=== PATIENT | male | born 1980 | race Caucasian/White ===

== ENCOUNTER → 2017-10-27 15:00 | Outpatient (CLI) | payer BC, SELFPAY ==
--- NOTE | 2017-10-27 15:00 | LES_PTH ---
PATIENT: SCOTTIE GRIFFITH LOC: [facility] #:[id number] AGE/SX: 44/M ROOM: RE10/27/[address]: Dr. Ralph Moreno MD : 1980 BED: DIS: SPEC #: [id number] RECD: 10/27/17 16:25 STATUS: JENNIFER GWEN #: [id number] DANAE: 10/27/17 15:[address]: Ralph Moreno DEPT: SURGICAL PATHOLOGY RECD BY: Alejo Najera Tissues: A - Skin of forehead B - Skin of neck, NOS Procedures: Surgery Specimen Level IV HEADER OPERATION: Excision of skin lesion x2 PRE-OP DIAGNOSIS: Subcutaneous skin lesions <1 cm TISSUE SUBMITTED: A ? Skin lesion of forehead, B ? Skin lesion of posterior neck MICROSCOPIC DIAGNOSIS A. Skin lesion of forehead, biopsy: Fragments of mature adipose tissue, fibroconnective tissue and skeletal muscle tissue. See comment. B. Skin lesion of posterior neck, biopsy: Epidermal inclusion cyst. TAWNYA:maria dolores 11/02/17 COMMENT A. The lesion may represent lipoma. MICROSCOPIC DESCRIPTION Slides are reviewed. GROSS DESCRIPTION A - Received in fixative is one container labeled with the patient's name and designated skin lesion of forehead. The specimen consists of two pieces of franco soft tissue measuring in aggregate 1.2 x 0.5 x 0.2 cm. The entire specimen is submitted in one cassette. B - Received in fixative is one container labeled with the patient's name and designated skin lesion of posterior neck. The specimen consists of multiple irregular fragments of franco-white soft tissue that in aggregate measure 2 x 1.5 x 0.2 cm. The entire specimen is submitted in one cassette. / TAWNYA:maria dolores 10/27/17 TC: CPT: 43510 x2
--- NOTE | 2017-10-27 15:00 | DT_ITS ---
This patient was seen during an EMR downtime October 26, 2017 - November 02, 2017. This patient may have a combination of paper and electronic documentation or all paper documentation. All documentation is viewable within the e-chart portion of [email or web address] for each patient visit.
== END ==
PROVIDERS: Visit Provider Surgery
DX: L72.0 Epidermal cyst (principal)
CPT/HCPCS: 88305

== ENCOUNTER → 2020-02-07 15:54 | Outpatient (CLI) | payer BC, SELFPAY ==
--- NOTE | 2020-02-07 14:30 | CYST_PTH ---
PATIENT: SCOTTIE GRIFFITH LOC: [facility] U#:[id number] AGE/SX: 44/M ROOM: RE02/07/[address]: Dr. Ralph Moreno MD : 1980 BED: DIS: SPEC #: [id number] RECD: 02/07/20 15:44 STATUS: JENNIFER GWEN #: [id number] DANAE: 02/07/20 14:[address]: Ralph Moreno DEPT: SURGICAL PATHOLOGY RECD BY: Reno Crow ENTERED: 02/08/20 09:53 SP TYPE: Cyst OTHR DR: Dr. Taiwo Vázquez MD Tissues: CYST Procedures: Surgery Specimen Level III HEADER OPERATION: Excision forehead cyst PRE-OP DIAGNOSIS: Dermoid cyst forehead D23.39 TISSUE SUBMITTED: Forehead cyst MICROSCOPIC DIAGNOSIS Forehead cyst, excision: Fragments of mature adipose tissue. See comment. TAWNYA:maria dolores 02/09/20 COMMENT The finding may represent lipoma. Correlation with clinical findings and appropriate follow up are necessary. Please make reference to previous specimen ([id number]) skin lesion forehead, biopsy with diagnosis of fragments of mature adipose tissue, fibroconnective tissue and skeletal muscle tissue and skin lesion posterior neck, biopsy with diagnosis of epidermal inclusion cyst. MICROSCOPIC DESCRIPTION Slides are reviewed. GROSS DESCRIPTION Received in fixative is one container labeled with the patient's name and designated forehead cyst. The specimen consists of multiple irregular fragments of franco-yellow soft tissue that in aggregate measure 2 x 1.5 x 0.2 cm. The specimen is totally submitted in one cassette. / SJ:maria dolores 02/08/20 TC:5 CPT: 79352
== END ==
PROVIDERS: PCP Family Medicine; Referring Provider Surgery; Visit Provider Surgery
DX: D23.39 Other benign neoplasm of skin of other parts of face (principal)
CPT/HCPCS: 88304